=== PATIENT | female | born 1950 | race Caucasian/White ===

== ENCOUNTER → 2021-05-02 | Outpatient (CLI) | payer BC | LOC: RAD 09:44 | DX: K22.70 Barrett's esophagus without dysplasia (principal); K21.9 Gastro-esophageal reflux disease without esophagitis; K44.9 Diaphragmatic hernia without obstruction or gangrene | CPT/HCPCS: 74246 ==

== ENCOUNTER → 2021-11-25 | Outpatient (CLI) | payer MEDICARE, BC | LOC: KOH-I 13:01 | DX: R80.9 Proteinuria, unspecified (principal) | CPT/HCPCS: 76775 ==

== ENCOUNTER → 2022-03-27 | Outpatient (CLI) | payer MEDICARE, BC | LOC: KOH-I 15:15 | DX: M79.605 Pain in left leg (principal); M79.89 Other specified soft tissue disorders | CPT/HCPCS: 93971 ==